=== PATIENT | male | born 1970 | race Caucasian/White ===

== ENCOUNTER 2016-10-30 19:24 | Emergency (ER) | payer MEDICAID ==
[2016-10-30 19:44] VITALS: BP 116/73; PULSE 80; TEMP 99.7; O2SAT 99
[2016-10-30] MEDS ORDERED: Dexamethasone 4 mg/1 ml IM STA (20:01)
[2016-10-30] MEDS ORDERED: Dexamethasone 4 mg/1 ml ONE (20:44)
--- NOTE | 2016-10-30 21:19 | C.PDOC ---
History Of Present Illness 46 y/o male presents to ED with complaints of sore throat and subjective fever for 2 days worsen today with difficulty swallowing. Patient denies n/v/d, chills , sweats, sob, cp or any other complaints at this time. Time Seen by Provider: 10/30/16 19:51 Chief Complaint (Nursing): ENT Problem History Per: Patient History/Exam Limitations: None Onset/Duration Of Symptoms: Days Current Symptoms Are (Timing): Still Present Past Medical History Reviewed: Historical Data, Nursing Documentation, Vital Signs Vital Signs: Last Vital Signs Temp 99.7 F H 10/30/16 19:41 Pulse 80 10/30/16 19:41 Resp 20 10/30/16 21:25 BP 116/73 10/30/16 19:41 Pulse Ox 99 10/30/16 21:37 Family History: States: No Known Family Hx - Social History Hx Alcohol Use: No Hx Substance Use: No - Immunization History Hx Tetanus Toxoid Vaccination: No Hx Influenza Vaccination: No Hx Pneumococcal Vaccination: No Review Of Systems Except As Marked, All Systems Reviewed And Found Negative. Constitutional: Positive for: Fever. Negative for: Weakness ENT: Positive for: Throat Swelling Cardiovascular: Negative for: Chest Pain Respiratory: Negative for: Shortness of Breath Gastrointestinal: Negative for: Nausea, Vomiting, Diarrhea Skin: Negative for: Rash Neurological: Negative for: Headache Physical Exam - Physical Exam Appears: Non-toxic, No Acute Distress Skin: Normal Color, Warm Head: Atraumatic, Normacephalic Eye(s): bilateral: Normal Inspection, PERRL Oral Mucosa: Moist Tongue: Normal Appearing, No Swelling Lips: Normal Appearing, No Swelling Throat: Normal, Erythema, No Exudate, No Mass, Other (Enlarged tonsils with swelling of tonsils and hypopharynx) Lymphatic: Adenopathy (Enlarged Tender submandibular adenopathy), Other Cardiovascular: Rhythm Regular Respiratory: Normal Breath Sounds, No Stridor, No Wheezing Neurological/Psych: Oriented x3 ED Course And Treatment O2 Sat by Pulse Oximetry: 99 (RA) Pulse Ox Interpretation: Normal Progress Note: Patient was given Decadron, Lidocaine and Penicillin. Patient was reevaluated and has improved speaking full sentences. D/C and advised to follow up with PMD Disposition Counseled Patient/Family Regarding: Diagnosis, Need For Followup, Rx Given - Disposition Referrals: Nomi Alcantara [Staff Provider] - Disposition: HOME/ ROUTINE Disposition Time: 21:17 Condition: STABLE Additional Instructions: Gargle with warm salt water Follow up with PMD Return to ER if worse Prescriptions: Ibuprofen [Motrin] 600 mg PO Q6H #30 tab Penicillin VK [Pen-Vee K] 2 tab PO BID #28 tab predniSONE [Prednisone] 40 mg PO DAILY #8 tab Instructions: Pharyngitis (ED) - Clinical Impression Clinical Impression: Pharyngitis - PA / PRODUCT MANAGEMENT CONSULTANT / Resident Statement MD/DO has reviewed & agrees with the documentation as recorded. - Scribe Statement The provider has reviewed the documentation as recorded by the Gisell Zuleta All medical record entries made by the Gisell were at my direction and personally dictated by me. I have reviewed the chart and agree that the record accurately reflects my personal performance of the history, physical exam, medical decision making, and the department course for this patient. I have also personally directed, reviewed, and agree with the discharge instructions and disposition.
[2016-10-30 21:26] VITALS: RESP 20
== END 2016-10-30 21:25 | disposition home or self-care (01) ==
LOC: C.ER 19:24
DX: J02.9 Acute pharyngitis, unspecified (principal)
CPT/HCPCS: 96372; 99283; J1100